=== PATIENT | female | born 1945 ===

== ENCOUNTER 2020-04-08 06:46 | Observation (INO) ==
[~2020-04-08 06:46] MED LIST: BACITRACIN OINT 0.9 GM PACK TOP ONE; LACTATED RINGERS 1,000 ML IV SCH; VANCOMYCIN INJ 1,000 MG in SODIUM CHLORIDE 0.9% 250 ML IV ONE; ceFAZolin 2,000 MG in PREMIX 1 EACH IV ONE
[2020-04-08] MEDS ORDERED: LIDOCAINE 1% 5 ML VIAL ONE (07:42)
[2020-04-08] MEDS ORDERED: ROPIVACAINE 0.5% 30 ML VIAL ONE (07:42)
[2020-04-08] MEDS ORDERED: DEXAMETHASONE 4 MG/1 ML VIAL ONE (07:42)
[2020-04-08] MEDS ORDERED: DEXMEDETOMIDINE 200 MCG/2 ML VIAL ONE (07:55)
[2020-04-08] MEDS ORDERED: BUPIVACAINE SPINAL 0.75% 2 ML AMP SPINAL ONE (07:57)
[2020-04-08] MEDS ORDERED: TRANEXAMIC ACID 1,000 MG/10 ML VIAL ONE (09:39)
[2020-04-08] MEDS ORDERED: ZALEPLON 5 MG CAPSULE PO PRN (09:56)
[2020-04-08] MEDS ORDERED: ONDANSETRON 4 MG/2 ML VIAL IV PRN (09:56)
[2020-04-08] MEDS ORDERED: diphenhydrAMINE CAP 25 MG CAPSULE PO PRN (09:56)
[2020-04-08] MEDS ORDERED: MAGNESIUM HYDROXIDE SUSP 30 ML UDCUP PO PRN (09:56)
[2020-04-08] MEDS ORDERED: MORPHINE 4 MG/1 ML VIAL IV PRN ×2 (09:56)
[2020-04-08] MEDS: LACTATED RINGERS 1,000 ML IV SCH ×2 (10:24→17:57)
[2020-04-08] MEDS ORDERED: KETOROLAC 30 MG/1 ML VIAL ONE (10:26)
[2020-04-08] MEDS: KETOROLAC 15 MG/1 ML VIAL IV SCH ×3 (10:27→21:52)
[2020-04-08 17:41] LABS: Basophils % 0.2 % (0.0-0.8); Hematocrit 42.1 VOL% (35.7-47.0); Hemoglobin 13.4 GM/DL (12.0-16.0); Immature Granulocytes % 0.5 %; Immature Granulocytes Absolute 0.06 #; Lymphocytes # 0.4 10*3/uL (1.4-4.0); Lymphocytes % 3.7 % (21.3-54.2); Mean Corpuscular HGB Conc 31.8 GM/DL (32-36); Mean Corpuscular Volume 91.1 FL (87-102); Monocytes % 4.2 % (1.7-12.7); Neutrophils % 91.4 % (38.7-73.9); Platelet Count 191 T/CUMM (130-400); Red Blood Count 4.62 MC/CUMM (3.8-5.5); White Blood Count 11.6 T/CUMM (4-12)
[2020-04-08] MEDS: ceFAZolin 2,000 MG in PREMIX 1 EACH IV SCH ×2 (17:57→21:55)
[2020-04-08 18:00] LABS: Calcium 8.4 MG/DL (8.5-10.1); Osmolality,Calculated 284.4 MOS/KG (273-304); Potassium 4.2 MMOL/L (3.5-5.1)
[2020-04-08 18:09] LABS: Lymphocytes 7 % (20-55); Segmented Neutrophils 87 % (50-85); Total Cells Counted 100
[2020-04-08 18:19] LABS: Platelet Estimate Normal
[2020-04-08] MEDS: DOCUSATE SODIUM 100 MG CAPSULE PO SCH (21:39)
[2020-04-09] MEDS: LACTATED RINGERS 1,000 ML IV SCH (02:28)
[2020-04-09] MEDS: KETOROLAC 15 MG/1 ML VIAL IV SCH (03:42)
[2020-04-09 05:14] LABS: Basophils % 0.3 % (0.0-0.8); Hemoglobin 12.1 GM/DL (12.0-16.0); Immature Granulocytes % 0.4 %; Immature Granulocytes Absolute 0.04 #; Lymphocytes # 0.9 10*3/uL (1.4-4.0); Lymphocytes % 8.4 % (21.3-54.2); Mean Corpuscular HGB Conc 31.8 GM/DL (32-36); Mean Corpuscular Volume 91.1 FL (87-102); Mean Platelet Volume 11.9 FL (9.6-12.0); Monocytes % 9.5 % (1.7-12.7); Neutrophils % 81.4 % (38.7-73.9); Platelet Count 175 T/CUMM (130-400); Red Blood Count 4.17 MC/CUMM (3.8-5.5); White Blood Count 10.9 T/CUMM (4-12)
[2020-04-09 05:36] LABS: Calcium 8.1 MG/DL (8.5-10.1); Osmolality,Calculated 281.3 MOS/KG (273-304); Potassium 4.4 MMOL/L (3.5-5.1)
[2020-04-09] MEDS ORDERED: FONDAPARINUX 2.5 MG/0.5 ML SYRINGE SUBCUT SCH (06:00)
[2020-04-09] MEDS: DOCUSATE SODIUM 100 MG CAPSULE PO SCH (08:00)
[2020-04-09] MEDS ORDERED: amLODIPine 5 MG TABLET PO SCH (09:00)
[2020-04-09 15:52] VITALS: BP 169/68
== END 2020-04-09 18:13 | disposition home health service (06) ==
LOC: N.OR 06:46 → N.SDSINP 06:47 → INTOOBSV 09:56 → N.SDSINP 09:56 → N.3E 17:07
PROVIDERS: ADMIT Orthopaedic Surgery; ATTEND Orthopaedic Surgery